=== PATIENT | female | born 1965 | race Caucasian/White ===

== ENCOUNTER 2023-04-24 17:03 | Emergency (ER) | payer MEDICAID, SELFPAY ==
[~2023-04-24] VITALS: Ht 162.6 cm; Wt 72.7 kg
[2023-04-24] MEDS ORDERED: ASPIRIN 81MG CHEW TABLET PO ONE (17:35)
[2023-04-24 18:17] LABS: BASO % 0.7 % (0.0-1.0); EOS # 0.1 10^3/uL (0.0-0.5); EOS % 1.3 % (0.0-3.0); HEMATOCRIT 37.3 % (36.0-47.0); HEMOGLOBIN 11.9 g/dl (12.0-15.5); LYMPH # 1.6 10^3/uL (1.5-5.0); LYMPH % 27.2 % (24.0-44.0); MEAN CORPUSCULAR HEMOGLOBIN 32.1 pg (27.0-33.0); MEAN CORPUSCULAR HGB CONC 31.9 g/dl (32.0-36.5); MEAN CORPUSCULAR VOLUME 100.5 fl (80.0-96.0); MONO # 0.5 10^3/uL (0.0-0.8); MONO % 7.7 % (2.0-8.0); NEUTROPHILS # 3.8 10^3/uL (1.5-8.5); NEUTROPHILS % 62.4 % (36.0-66.0); PLATELET COUNT, AUTOMATED 313 10^3/uL (150-450); RED BLOOD COUNT 3.71 10^6/uL (4.00-5.40)
[2023-04-24] MEDS ORDERED: ISOVUE-370 76% 100ML VIAL As Ordered ONE (18:25)
[2023-04-24 18:27] LABS: CK-MB VALUE MASS 1.2 NG/ML (<3.6); LIPASE 53 U/L (12-53)
[2023-04-24 18:30] LABS: ALBUMIN 3.4 G/DL (3.2-5.2); ALKALINE PHOSPHATASE 121 U/L (46-116); ALT/SGPT < 9 U/L (7.0-40); AST/SGOT 27 U/L (<34); BILIRUBIN,DIRECT < 0.1 MG/DL (<0.4); BILIRUBIN,TOTAL 0.2 MG/DL (0.3-1.2); TOTAL PROTEIN 6.5 G/DL (5.7-8.2)
[2023-04-24 18:31] LABS: THYROID STIMULATING HORMONE 2.638 uIU/ML (0.55-4.78)
[2023-04-24 18:32] LABS: FREE T4 1.01 NG/DL (0.89-1.76)
[2023-04-24 18:34] LABS: CPK CREATINE PHOSPHOKINASE 100 U/L (34-145)
[2023-04-24 19:15] VITALS: BP 139/72
[2023-04-24 19:20] LABS: CK-MB VALUE MASS < 1.0 NG/ML (<3.6)
[2023-04-24 19:21] LABS: CPK CREATINE PHOSPHOKINASE 89 U/L (34-145); MB/CK RELATIVE INDEX 1.12 (< OR =4)
[2023-04-24 19:33] VITALS: TEMP 97.4; O2SAT 99
== END 2023-04-24 20:00 | disposition home or self-care (01) ==
LOC: M ED 17:03 → EDBD 17:03 → M ED 20:00
DX: R07.9 Chest pain, unspecified (principal); R91.8 Other nonspecific abnormal finding of lung field; I45.19 Other right bundle-branch block; I10 Essential (primary) hypertension; J44.9 Chronic obstructive pulmonary disease, unspecified; K21.9 Gastro-esophageal reflux disease without esophagitis; F33.9 Major depressive disorder, recurrent, unspecified; F17.200 Nicotine dependence, unspecified, uncomplicated; F10.10 Alcohol abuse, uncomplicated
CPT/HCPCS: 36415; 71045; 71275; 80047; 80076; 82550; 82553; 83690; 84439; 84443; 84484; 85025; 93005; 93041; 94760; 99285; Q9967